=== PATIENT | male | born 1985 | race Caucasian/White ===

== ENCOUNTER 2024-12-06 10:00 | Emergency (ER) | payer OTHER, SELFPAY ==
--- NOTE | ~2024-12-06 | XR_ITS ---
EXAMINATION: XR chest 2V DATE: 12/06/2024 11:02 INDICATION: Cough and fever TECHNIQUE: PA and lateral views of the chest were obtained. COMPARISON: None FINDINGS: The lungs are clear with no focal airspace opacities, pulmonary edema, pleural effusion or pneumothor ax. The cardiomediastinal silhouette is normal. Visualized bones and soft tissues are unremarkable. IMPRESSION: 1. No acute cardiopulmonary disease. Reviewed, dictated and finalized at location A. KSMITH HAMMER OPERATOR
--- NOTE | 2024-12-06 10:04 | ED.URI ---
HPI - URI/Sore Throat General Chief Complaint: Upper Respiratory Infection Stated Complaint: Fatigue/Cough/Fever Time Seen by Provider: 12/06/24 10:04 Source: patient Mode of arrival: ambulatory Limitations: no limitations History of Present Illness HPI Narrative: Patient is a 39-year-old male who presents with fatigue, cold sweats, fever, cough for the last 10 hours. Has not taken anything for symptoms. Denies any known exposures. Smokes half pack a day. Has history of asthma. Related Data Home Medications ?Medication ?Instructions ?Recorded ?Confirmed ?Last Taken ?Type omeprazole 40 mg capsule,delayed mg 12/06/24 Unknown History release Allergies Allergy/AdvReac Type Severity Reaction Status Date / Time No Known Allergies Allergy Unverified 12/06/24 10:17 Review of Systems Review of Systems: All systems reviewed & are unremarkable except as noted in HPI and below Constitutional: Constitutional: Reports chills, Reports fatigue, Reports fever(s), Denies headache(s), Denies malaise and Denies weakness Eyes: Eyes: Denies blurry vision, Denies itchy eyes and Denies loss of vision ENT: Denies otalgia, Denies headache(s), Denies nasal congestion, Denies sinus pain and Denies sore throat Cardiovascular: Cardiovascular: Denies chest pain, Denies irregular heart rhythm and Denies dyspnea Respiratory: Respiratory: Reports cough and Denies dyspnea Gastrointestinal: Gastrointestinal: Denies abdominal pain, Denies diarrhea, Denies nausea and Denies vomiting Musculoskeletal: Musculoskeletal: Denies back pain, Denies myalgias and Denies arthralgias Integumentary/Breasts: Skin/Breast: Denies pruritus and Denies rash Neurologic: Denies headache(s), Denies loss of vision and Denies weakness Psychiatric: Psychiatric: Reports no additional psychiatric complaints Endocrine: Endocrine: Denies fatigue Allergic/Immunologic: Allergic/Immunologic: Denies itchy eyes PMFSH Comments At time of signature, agree with nursing past medical, surgical, social and family history. There is no relevant family history pertinent to the presenting complaint. Exam Const: General: cooperative, healthy appearing, comfortable, no acute distress and well nourished Nutritional Appearance: well nourished Orientation/consciousness: patient oriented x3 Limitations: no limitations HENMT: Head: normal to inspection, normocephalic and atraumatic Ears: hearing grossly normal bilaterally, external ears normal, TM's normal bilaterally, EAC's normal and no periauricular adenopathy Face/Nose/Sinus: Normal external nose present, Abnormal mucous membranes and turbinates present erythematous bilateral and diffuse, normal facial exam, sinuses nontender and face symmetric Face and sinus: normal facial exam, sinuses nontender and face symmetric Mouth: Yes Normal oral and palatal mucosa present, Yes lip normal, Yes tongue normal, Yes Normal salivary glands and ducts present, Yes oropharynx normal and Yes moist mucous membranes Teeth and gingiva: dentition normal Throat: posterior oropharynx normal, tonsils normal and uvula midline Eyes: General: appearance normal, both eyes and all related structures Alignment and Position: alignment normal and position normal Periorbital: periorbital findings normal Eyelids: eyelids normal Pupils: Equal, round and reactive pupils present Neck: Neck: normal visual inspection, full ROM, no lymphadenopathy and supple Chest: Chest palpation & inspection: normal inspection of the chest and normal palpation of entire chest wall Resp: Effort & Inspection: normal respiratory effort and able to speak in complete sentences Auscultation: no crackles, no rales, rhonchi throughout and no wheezes Cardio: Rate: tachycardic Rhythm: regular rhythm Heart sounds: S1 normal heart sound present and S2 normal heart sound present GI: Inspection: normal to inspection Skin: General skin exam: normal color and no rashes or lesions noted Neuro: General: patient oriented x3 and moves all extremities Cranial nerves: Yes Equal, round and reactive pupils present Speech: normal speech Gait exam (Neuro): Normal gait present Extrem: General: normal to inspection, full ROM and no edema Psych: Appearance: grossly normal and well kempt Mental Status: mental status grossly normal Speech and movement: Normal speech and movement present Affect: normal affect Attitude: cooperative Thought process: Normal thought process present Course Course Emergency Course: Discharge instructions reviewed with patient, as well as provided in writing per nursing staff. The instructions also include specific and strict return/GO TO THE ER as well as f/u information. All questions have been answered, and the patient deny any further questions with discharge and discharge plan. Portions of this record may have been created with voice recognition software Level of Care: Express Care Visit Vital Signs Vital signs: Vital Signs Temperature 38.3 C H 12/06/24 10:07 Pulse Rate 108 H 12/06/24 10:07 Respiratory Rate 18 02/21/25 10:07 Blood Pressure 137/86 12/06/24 10:07 Pulse Oximetry 96 12/06/24 10:07 Oxygen Delivery Room Air 12/06/24 10:07 Temperature 38.3 C H 12/06/24 10:07 Pulse Rate 108 H 12/06/24 10:07 Respiratory Rate 18 12/06/24 10:07 Blood Pressure 137/86 12/06/24 10:07 Pulse Oximetry 96 12/06/24 10:07 Oxygen Delivery Room Air 12/06/24 10:07 Reviewed MDM - URI/Sore Throat MDM Narrative Medical decision making narrative: Pt well hydrated appearing, in no respiratory distress, hemodynamically stable. Recommend supportive care. The patient is stable at time of discharge the clinical impression was discussed and the patient was given the opportunity to ask questions, which were addressed as completely as possible given the information available at present. Anticipatory guidance and return to care precautions were discussed and the importance of primary care follow-up was stressed and encouraged. The patient voiced understanding of the plan, indications to return, and the need for follow-up. Differential diagnosis considered: Bronchitis, Sifuentes virus, strep pharyngitis, allergic rhinitis, upper respiratory tract infection, sinusitis, rhinosinusitis, nasopharyngitis. viral pharyngitis, otitis media, otitis externa, otitis effusion, foreign body, cerumen impaction, viral syndrome, and influenza.? Exam findings show no acute concerns or changes; patient is non-toxic appearing and is in no distress.? Patient is appropriate for outpatient treatment and follow-up.? Medical Records Attestation: I reviewed the patient's medical records. Lab Data Attestation: I reviewed the patient's lab results. Labs: Lab Results 12/06/24 Range/Units 10:30 POC Influenza A Ag Negative (Negative) POC Influenza B Ag Negative (Negative) POC SARS CoV-2 Ag Negative (Negative) Imaging Data Radiologist's impression: EXAMINATION: XR chest 2V DATE: 12/06/2024 11:02 INDICATION: Cough and fever TECHNIQUE: PA and lateral views of the chest were obtained. COMPARISON: None FINDINGS: The lungs are clear with no focal airspace opacities, pulmonary edema, pleural effusion or pneumothorax. The cardiomediastinal silhouette is normal. Visualized bones and soft tissues are unremarkable. IMPRESSION: 1. No acute cardiopulmonary disease. Discharge Plan Discharge Clinical Impression: Influenza-like illness Patient Disposition: Home, Self-Care Condition: Stable Instructions: Viral Syndrome (ED) Additional Instructions: Were positive negative for COVID and Flu. It may be too early in the disease process for it to be positive. However, treatment remains the same in treating symptoms. Your symptoms are due to a viral illness, which is not treated with antibiotics. Viral symptoms can be present for up to a few weeks. -For fever/pain, you may take: Tylenol 650-1000mg by mouth every 4-6 hours. Do not exceed 4000mg in 24 hours. Advil (Ibuprofen) 600 mg by mouth every 6 hours. Do not exceed 2400mg in 24 hours. 8 AM: Tylenol 11 AM: Ibuprofen 2 PM: Tylenol 5 PM: Ibuprofen 8 PM: Tylenol 11 PM: Ibuprofen 2 AM: Tylenol 5 AM: Ibuprofen -Antihistamine medication such as Benadryl/Zyrtec at night and Claritin/Larisa during the day can help improve symptoms. -Use Flonase twice a day for 5 days then daily to help reduce the inflammation and dry up your sinuses. -You can also use Sudafed behind the pharmacy counter(12 or 24 hour). Be sure to drink plenty of water with these medications at least 8 ounces with every dose and it is important to drink 8 to 10 glasses of water per day. Water is a natural decongestant -Eat and drink things that are easy to swallow, like tea or soup, or popsicles. -Oral rinses such as: Salt water gargles and/or may use topical anesthetic (eg. Chloraseptic spray) or lozenges to relieve dryness or throat pain). -Frequent hand washing or hand transcript evaluator is one of the best ways to prevent spread of infection. -Using a vaporizer or humidifier at night will also help thin secretions and help with coughing up phlegm. -Follow up with primary care provider in 3-5 days if condition is not improving - For new or worsening symptoms go directly to the nearest ER Patient Language: Occitan Prescriptions: New benzonatate 100 mg capsule 100 mg PO BID PRN (Reason: cough) Qty: 14 0RF albuterol sulfate 90 mcg/actuation HFA aerosol inhaler 2 puff inhalation QID PRN (Reason: shortness of breath or wheezing) Qty: 6.7 0RF (DME) Aerochamber MV Spacer See Rx Instructions .Route Qty: 1 0RF Rx Instructions: As directed No Action omeprazole 40 mg capsule,delayed release(DR/EC) Follow-up/Referrals: Sandra Matamoros RN [Primary Care Provider] - 3 Days Stand Alone Forms: Work/School Release IP Time of Disposition: 11:15
[2024-12-06 10:07] VITALS: BP 137/86; PULSE 108; RESP 18; TEMP 38.3; O2SAT 96
[2024-12-06 10:32] LABS: EDCOVIDSCREEN Negative (Negative); EDINFLUASCREEN Negative (Negative); EDINFLUBSCREEN Negative (Negative)
--- OUTSIDE RECORDS SUMMARY | 2024-12-06 10:39 | XMS_ITS | Clinical Summary ---
Author Organization [facility] Healthcare Address [address] [place] [address] Care Team Providers Care Digital Strategy Specialist Name Role Phone Sandra Matamoros CERAMIC SAW TENDER Primary Care Provider Allergies Active Allergy Reactions Criticality Noted Date Comments Lactose Medications traMADol (ULTRAM) 50 mg tablet Take 1 tablet (50 mg total) by mouth every 6 (six) hours. 20 tablet 8 Active albuterol HFA (PROVENTIL HFA,VENTOLIN HFA,PROAIR HFA) 90 mcg/actuation inhaler Inhale 2 puffs every 4 (four) hours as needed 2 Active budesonide-formoter oL (SYMBICORT) 80-4.5 mcg/actuation inhaler Inhale 2 puffs 2 (two) times a day 2 Active omeprazole (PriLOSEC) 40 mg capsule Take 1 capsule (40 mg total) by mouth daily 2 Active tamsulosin (FLOMAX) 0.4 mg extended release capsule Take 1 capsule (0.4 mg total) by mouth nightly as needed 3 Active solifenacin (VESIcare) 10 mg tablet Take 1 tablet (10 mg total) by mouth daily 3 Active HYDROcodone-acetami nophen (NORCO) 5-325 mg per tabletIndications:P ain Take 1 tablet by mouth every 6 (six) hours as needed for pain 12 tablet 3 Active ondansetron ODT (ZOFRAN-ODT) 8 mg disintegrating tabletIndications:P revention of Post-Operative Nausea and Vomiting Take 1 tablet (8 mg total) by mouth every 8 (eight) hours as needed for nausea or vomiting 12 tablet 1 3 Active Active Problems Problem Noted Date Diagnosed Date Scar of hand 08/18/2023 Scarring, keloid 03/24/2023 Mild persistent asthma without complication 07/17 Atrial fibrillation (CMS/HCC) 08/22/2019 Gastroesophageal reflux disease without esophagi tis 02/19/2019 Dental abscess 05/06/2018 Dentalgia 05/06/2018 Dental caries extending into pulp 05/06/2018 Abscess of hand 08/19/2013 Surgical History Surgery Date Site/Laterality Comments THUMB SURGERY 10/16/2012 - 10/15/2013 Right Medical History Medical History Date Comments Sleep apnea Asthma GERD (gastroesophageal reflux disease) Social History Tobacco Use Types Packs/Day Years Used Date Smoking Tobacco: Every Day Cigarettes Smokeless Tobacco: Never Tobacco Cessation:Ready to Q uit: Not Asked; Counseling Given: Not Answered AUDIT-C Answer Date Recorded Frequency of Alcohol Consumption Not on file 08/30/2023 Q2: How many drinks containi ng alcohol do you have on a typical day when you are drinking? Patient does not drink Frequency of Binge Drinking Not on file 08/16 Personal Safety Answer Date Recorded Have you ever been in or are you currently in a harmful physical or emotional relationship or is someone making you feel afraid or unsafe? Denies 09/12/2023 Sex and Gender Information Value Date Recorded Sex Assigned at Not on file Legal Sex Male 3:02 AM MARKETING SUPPORT ASSISTANT Gender Identity Not on file Sexual Orientation Not on file Obstetrics History Last Filed Vital Signs Vital Sign Reading Time Taken Comments Blood Pressure 124/85 11/21/2023 9:17 AM MARKETING SUPPORT ASSISTANT Pulse 73 11/21/2023 9:17 AM MARKETING SUPPORT ASSISTANT Temperature 36 C (96.8 F) 09/12/2023 10:28 AM MARKETING SUPPORT ASSISTANT Respiratory Rate 18 11/21/2023 9:17 AM MARKETING SUPPORT ASSISTANT Oxygen Saturation 98% 11/21/2023 9:17 AM MARKETING SUPPORT ASSISTANT Inhaled Oxygen Concentration - - Weight 122 kg (269 lb) 11/21/2023 9:17 AM MARKETING SUPPORT ASSISTANT Height 180.3 cm (5' 11 ) 11/21/2023 9:17 AM MARKETING SUPPORT ASSISTANT Body Mass Index 37.52 11/21/2023 9:17 AM MARKETING SUPPORT ASSISTANT Plan of Treatment Health Maintenance Due Date Last Done Comments Depression Screening 1987 Hepatitis C Screening 1987 Varicella Vaccines (1 of 2 - 13+ 2-dose series) 2000 DTaP/Tdap/Td Vaccine (6 - Tdap) 05/24/2003 05/23/2003, 02/05/1993, 07/20/1989, Additional history exists Regular Well Visit/Exam 18-64 2005 Pneumococcal vaccine <65 (2 of 2 - PCV) 09/16/2022 09/16/2021 Covid-19 Vaccine (3 - season) 2024 02/11/2021, 01/14/2021 Influenza Vaccine (#1) 2024 , 08/09/2022, 09/16/2021, Additional history exists Hepatitis B Screening Completed 02/28/1997 , 08/29/1996, 07/30/1996 HPV Vaccines Aged Out No longer eligi ble based on patient's age to complete this topic Insurance [facility] CHOICE [facility] HMO/PPO [place]: [place] [address] Care Teams Digital Strategy Specialist Relationship Specialty Start Date End Date Sandra Matamoros NP [address] [place] [address] PCP - General Nurse Practitioner 05/16/24
--- OUTSIDE RECORDS SUMMARY | 2024-12-06 10:39 | XMS_ITS | Encounter Summary ---
Author Organization [facility] Address [address] [place] [address] Phone Care Team Providers Care Nike Athlete Name Role Phone Gabriel Newell MD Primary Care Provider [phone] Juan Ramon Montes FAMILY AND DIVORCE LEGAL ASSISTANT, BUGGY RUNNER Unavailable [phone] Reason for Visit * Reason Comments Medication Refill prilosec Encounter Details Date Type Department Care Team (Late st Contact Info) Description 07/30/2020 Refill [facility] - Family Medicine [facility] [address] [place] [address] Gabriel Newell MD [address] [place] [address] Medication Refill (prilosec) Social History Tobacco Use Types Packs/Day Years Used Date Smoking Tobacco: Every Day Cigarettes Smokeless Tobacco: Never Alcohol Use Standard Drinks/Week Comments Yes 0 (1 standard drink = 0.6 oz pur e alcohol) rarely PHQ-2 Answer Date Recorded PHQ-2 Score 0 06/14/2019 Sexually Active Control Partners Comments Yes Condom Female Sex and Gender Information Value Date Recorded Sex Assigned at Not on file Legal Sex Male 9:49 PM CDT Gender Identity Not on file Sexual Orientation Not on file documented as of this encounter Miscellaneous Notes * Telephone Encounter - Candy Fernandez RN - 07/30/2020 12:04 PM CDT Last Refill 06/04/2019 #90 3 refills Last OV 03/23/2020 f/u 4 months, had an appointment on 06/26/2020 for shoulder pain Next OV Visit date not found Pended for your approval. Requested Prescriptions Pending Prescriptions Disp Refills ??? omeprazole (PriLOSEC) 40 MG CAPSULE DELAYED RELEASE [Pharmacy Med Name: Omeprazole 40 MG Oral Capsule Delayed Release] 90 Cap 0 Sig: Take 1 capsule by mouth once daily documented in this encounter Plan of Treatment Not on file documented as of this encounter Visit Diagnoses Not on filedocumented in this encounter Additional Health Concerns Infection Onset Date Last Indicated Resolved Time COVID - 19 11/18/2020 11/18/2020 11/19/2020 7:59 AM PSYCHIATRIC TECHNICIAN COVID - 19 09/13/2021 09/13/2021 10/03/2021 12:1 6 AM PSYCHIATRIC TECHNICIAN COVID - 19 04/07/2022 04/07/2022 04/17/2022 12:1 6 AM CDT COVID - 19 07/01/2022 07/01/2022 07/11/2022 12:1 6 AM CDT COVID - 19 07/20/2022 07/20/2022 07/30/2022 12:1 6 AM CDT COVID - 19 09/16/2022 09/16/2022 09/26/2022 12:1 6 AM PSYCHIATRIC TECHNICIAN Assessment Noted Time PHQ-9 Depression Total Score: 0 10/23/19 20 10:42 AM PSYCHIATRIC TECHNICIAN documented as of this encounter Care Teams Nike Athlete Relationship Specialty Start Date End Date Gabriel Newell MD PCP - General Family Medicine 02/19/19 Juan Ramon Montes, FAMILY AND DIVORCE LEGAL ASSISTANT, BUGGY RUNNER [address] [place] [address] Nurse Practitioner Advanced Practice Nurse 07/18/23 documented as of this encounter
--- OUTSIDE RECORDS SUMMARY | 2024-12-06 10:39 | XMS_ITS | Referral Summary ---
Author Organization [facility] Healthcare Address [address] [place] [address] Care Team Providers Care Corporate Treasury Analyst Name Role Phone Sandra Matamoros FILTER ASSEMBLER Primary Care Provider Allergies Active Allergy Reactions [...] persistent asthma without complication 07/17 Atrial fibrillation ([facility]/HCC) 08/22/2019 Gastroesophageal reflux disease without esophagi tis 02/19/2019 Dental abscess 05/06/2018 Dentalgia 05/06/2018 Dental caries extending into pulp 05/06/2018 Abscess of hand 08/19/2013 Social History Tobacco Use Types Packs/Day Years [...] on file Legal Sex Male 3:02 AM BRIM EDGE TRIMMER Gender Identity Not on file Sexual Orientation Not on file Last Filed Vital Signs Vital Sign Reading Time Taken Comments Blood Pressure 124/85 11/21/2023 9:17 AM BRIM EDGE TRIMMER Pulse 73 11/21/2023 9:17 AM BRIM EDGE TRIMMER Temperature 36 C (96.8 F) 09/12/2023 10:28 AM BRIM EDGE TRIMMER Respiratory Rate 18 11/21/2023 9:17 AM BRIM EDGE TRIMMER Oxygen Saturation 98% 11/21/2023 9:17 AM BRIM EDGE TRIMMER Inhaled Oxygen Concentration - - Weight 122 kg (269 lb) 11/21/2023 9:17 AM BRIM EDGE TRIMMER Height 180.3 cm (5' 11 ) 11/21/2023 9:17 AM BRIM EDGE TRIMMER Body Mass Index 37.52 11/21/2023 9:17 AM BRIM EDGE TRIMMER Plan of Treatment Not on file Insurance [facility] CHOICE PLUS [facility] HMO/PPO Address: [facility] [id number] [place] [id number] Care Teams Corporate Treasury Analyst Relationship Specialty Start Date End Date Sandra Matamoros NP [address] [place] [address] [address] [place] [address] PCP - General Nurse Practitioner 05/16/24
--- OUTSIDE RECORDS SUMMARY | 2024-12-06 10:39 | XMS_ITS | Clinical Summary ---
Author Organization [facility] Address [address] [place] [address] Phone Care Team Providers Care Quality Assurance Clerk Name Role Phone Gabriel Newell MD Primary Care Provider [phone] Juan Ramon Montes APRN, CANCER PROGRAM DIRECTOR Unavailable Allergies Active Allergy Reactions Criticality Noted Date Comments Lactose Intolerance (Gi) Other (see Comments) Low 0 12/30/2021 constipation Medications fluticasone (FLONASE) 50 MCG/ACT SuspensionIndica tions:Viral URI with cough 1-2 Sprays by Nasal route daily. Use in each nostril as directed. 15.8 mL 3 2 Active budesonide-formo terol fumarate (Symbicort) 80-4.5 MCG/ACT AerosolIndicatio ns:Mild persistent asthma without complication take 2 Puffs by inhalation 2 times daily. Rinse mouth after using. 20.7 g 3 3 Active albuterol 108 (90 Base) MCG/ACT Aerosol SolutionIndicati ons:Mild persistent asthma without complication take 2 Puffs by inhalation every 4 hours as needed for Wheezing. 8.5 g 1 3 Active ibuprofen (MOTRIN) 800 MG Tablet Take 1 Tablet by mouth every 8 hours. 90 Tablet 2 3 Active Additional Information Patient not taking.Reported on 06/20/2023 Hydrocortisone, Perianal, (Anusol-HC) 2.5 % Cream Apply 4 times daily. Apply to rectum as directed. 28 g 3 Active polyethylene glycol (MiraLax) 17 GM/SCOOP Powder Take 17 g by mouth 2 times daily as needed for Constipation - 1st line. 17 g = 1 scoop. Dissolve in 4 -8 oz of water or other liquid. 510 g 3 Active naloxone HCl (Narcan) 4 MG/0.1ML Liquid 1 [place] by Nasal route as needed for Opioid Reversal (opioid overdose). administer for symptoms of overdose (severe sleepiness, breathing problems, not responsive). Call 911. May use additional dose to repeat 1 spray intranasally in 2-3 minutes if needed. 2 Each 3 Active tamsulosin (FLOMAX) 0.4 MG Capsule TAKE 1 CAPSULE BY MOUTH ONCE DAILY AT BEDTIME 3 Active tiZANidine (ZANAFLEX) 4 MG Tablet 3 Active naproxen (NAPROSYN) 375 MG Tablet TAKE 1 TABLET BY MOUTH ONCE DAILY NEEDED WITH A MEAL 3 Active solifenacin (VESICARE) 10 MG TabletIndication s:Urinary frequency,Urinar y urgency,Nocturia Take 1 Tablet by mouth daily. 30 Tablet 1 3 Active omeprazole (PriLOSEC) 40 MG CAPSULE DELAYED RELEASEIndicatio ns:Gastroesophag eal reflux disease without esophagitis Take 1 capsule by mouth once daily 90 Capsule 4 Active Active Problems Problem Noted Date Diagnosed Date Scarring, keloid 03/24/2023 Mild persistent asthma without complication 07/17 Atrial fibrillation 08/22/2019 Gastroesophageal reflux disease without esophagi tis 02/19/2019 Resolved Problems Problem Noted Date Diagnosed Date Resolved Date Tylenol overdose, accidental or unintentional, initial encounter 11/18/2020 021 Elevated LFTs 11/18/2020 02/09/2021 Anterior chest wall pain 06/26/2020 Encounter for general adult medical examination with abnormal findings 02/19/201902/09 Penile abscess 02/19/2019 08/22/2019 Immunizations Immunization Administration Dates Next Due Covid-19, Mrna, Lnp-s, PF, 1 00 mcg/0.5 mL Dose (Moderna) 02/11/2021,01/14/2021 DTP Vaccine 02/05/1993, 9,04/29/1988,1987,1987 Hepatitis B Vaccine, Pediatric/adolescent 02/28/1997,08/29/1996,07/30/1996 Hib Vaccine,unspecified Formulation 03/27/1989 Influenza Vaccine, Quadrivalent, PF 07/17,09/16/2021,06/26/2020,2018 MMR Vaccine 02/05/1993,01/06/1989 OPV 02/05/1993, 9,04/29/1988,1987,1987 Pneumococcal Vaccine Adult - 23 Valent 09/16/2021 Family History Medical History Relation Name Comments Other-comment Brother 1 Hiatal Hernia No Known Problems Brother 2 Cancer Father Prostate Prostate Cancer Father Liver Cancer Maternal Grandfather Stroke Maternal Grandmother Asthma Mother Cancer Mother Colon Colon Cancer Mother Stroke Paternal Grandfather Relation Name Status Comments Brother 1 Alive Brother 2 Alive Father Alive Maternal Grandfather Maternal Grandmother Mother Alive Paternal Grandfather Social History Tobacco Use Types Packs/Day Years Used Date Smoking Tobacco: Every Day Cigarettes 1 17.1 Started: 2007 Smokeless Tobacco: Never Tobacco Cessation:Ready to Q uit: Not Asked; Counseling Given: Not Answered Alcohol Use Standard Drinks/Week Comments Yes 0 (1 standard drink = 0.6 oz pure alcohol) quit 2020- used to drink a lot prior PHQ-2 Answer Date Recorded Total Score - Questions 1-9 0 12/15 Education Answer Date Recorded What is the highest level of school you have completed or the highest degree you have received? 12th grade 03/24/2023 Sexually Active Control Partners Comments Yes Condom Female Sex and Gender Information Value Date Recorded Sex Assigned at Not on file Legal Sex Male 9:49 PM CDT Gender Identity Not on file Sexual Orientation Not on file Last Filed Vital Signs Vital Sign Reading Time Taken Comments Blood Pressure 121/82 07/18/2023 9:38 AM CDT Pulse 71 07/18/2023 9:38 AM CDT Temperature 36.4 C (97.5 F) 06/20/2023 9:53 AM CDT Respiratory Rate 18 07/18/2023 9:38 AM CDT Oxygen Saturation 98% 07/18/2023 9:38 AM CDT Inhaled Oxygen Concentration - - Weight 118.8 kg (262 lb) 07/18/2023 9:38 AM CDT Height 180.3 cm (5' 11 ) 07/18/2023 9:38 AM CDT Body Mass Index 36.54 07/18/2023 9:38 AM CDT Plan of Treatment Health Maintenance Due Date Last Done Comments DTaP/Tdap/Td Immunization (6 - Tdap) 1998 02/05/1993, 07/20/1989, 04/29/1988, Additional history exists Pneumococcal Immunization Combined (2 of 2 - PCV) 09/16/2022 09/16/2021 Influenza Immunization (#1) 06/16/202407/17, 09/16/2021, 06/26/2020, Additional history exists Colonoscopy High Risk 08/03/2032 08/03/2022 Colonoscopy 08/03/2032 08/03/2022 Colorectal Cancer Screening 08/03/2032 Respiratory Syncytial Virus (RSV) Immunization (Adult) (1 - 1-dose 75+ series) 2062 Hepatitis B Immunization Completed 997, 08/29/1996, 07/30/1996 Hepatitis C Virus (HCV) Screening Completed 11/18/2020, 11/17/2020 SARS-COV-2 Immunization Discontinued 02/11/2021, 01/14 Meningococcal Immunization (ACWY) Aged Out No longer eligible based on patient's age to complete this topic Rotavirus Immunization Aged Out No lo nger eligible based on patient's age to complete this topic Procedures Procedure Name Priority Date/Time Associated Diagnosis Comments HEPATITIS C RNA QUANT PCR VIRAL LOAD Routine 11/18/2020 6:33 AM PRESS TOOL MAKER from Last 3 Months or Most Recently Relevant to Health Maintenance Results * Hepatitis C RNA Quant PCR Viral Load (11/18/2020 6:33 AM PRESS TOOL MAKER) HCV RNA QUANT PCR NON DETECTED NON DETECTED 11/20/2020 1:00 PM PRESS TOOL MAKER [facility] HCV RNA QT LOG10 11/20/2020 1:00 PM PRESS TOOL MAKER [facility] Comment: LOG 10 is not applicable. Sample held in Serology for 1 month. Call Laboratory if further testing is desired. This test was performed using ASHWIN AmpliPrep ASHWIN Taq Man Real Time PCR. Blood BLOOD SPECIMEN / Unknown Venipuncture / Unknown 11/18/2020 6:33 AM PRESS TOOL MAKER 11/18/2020 6:43 AM PRESS TOOL MAKER us Jaxson Glynn DO IMMUNOLOGY ORDERABLES Final Res ult [facility] [address] [place] [address], [place] from Last 3 Months or Most Recently Relevant to Health Maintenance Insurance MEDICAID [place] Advance Directives * Full Code (Latest Code Status on File) Date Activated Date Inactivated Comments 11/18/2020 12:40 AM 11/19/2020 3:46 PM CPR-Full Becky tment: FULL ARREST: Attempt Resuscitation/CPR wit intubation and mechanical ventilation. PRE-ARREST: Use entire range of life support measures to stabilize the patient. Care Teams Quality Assurance Clerk Relationship Specialty Start Date End Date Gabriel Newell MD PCP - General Family Medicine 02/19/19 Juan Ramon Montes, FORMULATOR, CANCER PROGRAM DIRECTOR [address] [place] [address] Nurse Practitioner Advanced Practice Nurse 07/18/23
--- OUTSIDE RECORDS SUMMARY | 2024-12-06 10:39 | XMS_ITS | Encounter Summary ---
Author Organization [facility] Address [address] [place] [address] Phone Care Team Providers Care Retirement Benefits Specialist Name Role Phone Gabriel Newell MD Primary Care Provider Juan Ramon Montes APRN, CELL TENDER Unavailable [phone] Reason for Visit * Reason Comments Medication Refill Encounter Details Date Type Department Care Team (Late st Contact Info) Description 10/01/2020 Refill [facility] - Family Medicine [facility] [address] [place] [id number] Gabriel Newell MD [address] [place] [address] Medication Refill Social History Tobacco Use Types Packs/Day Years [...] on file Sexual Orientation Not on file COVID-19 Exposure Response Date Recorded In the last month, have you been in contact with someone who was confirmed or suspected to have Coronavirus / COVID-19? No / Unsure 09/17/2020 9:25 AM CLIENT SALES AND SERVICE OFFICER documented as of this encounter Miscellaneous Notes * Telephone Encounter - Carole Callowayviviana Marquez RN - 10/01/2020 11:17 AM CST Medication failed the protocol, provider to review and approve the medication order if appropriate. Requested Prescriptions Pending Prescriptions Disp Refills warfarin (COUMADIN) 1 MG Tablet [Pharmacy Med Name: Warfarin Sodium 1 MG Oral Tablet] 90 Tab 0 Sig: TAKE 1 TABLET BY MOUTH ONCE DAILY WITH 5 MG TABLET TO EQUAL 6 MG DAILY Hematology: Anticoagulants - Warfarin Failed - 10/01/2020 9:13 AM Failed - INR in normal range and within 90 days INR Date Value Ref Range Status 09/17/2020 2.6 (H) 0.9 - 1.2 Final Comment: Therapeutic Ranges INR = 2.0-3.0: Venous thromb, atrial fib, pul embolism, tissue heart valve, ami. INR = 2.5-3.5: Mechanical heart valve Critical value for INR is >/= 4.5 Passed - Valid encounter within last 12 months Past Office Visits Recent Outpatient Visits 1 month ago Paroxysmal atrial fibrillation (HCC) [facility] Gabriel Jones MD 3 months ago Acute pain of right shoulder [facility] Gabriel Jones MD 6 months ago Atrial fibrillation, unspecified type (HCC) [facility] Gabriel Jones MD 9 months ago Acute maxillary sinusitis, recurrence not specified [facility] Gabriel Jones MD 10 months ago Cellulitis and abscess of right leg [facility] Gabriel Jones MD Upcoming Appointments Future Appointments In 2 weeks Lab, [facility], [facility] In 4 months Gabriel Newell MD [facility] [employer] [place] EXERCISE EQUIPMENT REPAIR TECHNICIAN - Recent and Past Visits Recent Visits Date Type Provider Dept 08/07/20 Office Visit Gabriel Newell MD [facility] 06/26/20 Office Visit Gabriel Newell MD [facility] 03/23/20 Office Visit Gabriel Newell MD [facility] 12/24/19 [facility] Visit Gabriel [facility]ell MD [facility] 11/22/19 Office Visit Gabriel Newell MD [facility] 10/23/19 Office Visit Sindy Rea, SHELLY [facility] 09/17/19 Office Visit Gabriel Newell MD [facility] 08/22/19 [facility] Visit [facility] Showing recent visits within past 460 days with a meds authorizing provider and meeting all other requirements Future Appointments No visits were found meeting these conditions. Showing future appointments within next 90 days with a meds authorizing provider and meeting all other requirements warfarin (COUMADIN) 5 MG Tablet [Pharmacy Med Name: Warfarin Sodium 5 MG Oral Tablet] 90 Tab 0 Sig: Take 1 tablet by mouth once daily Hematology: Anticoagulants - Warfarin Failed - 10/01/2020 9:13 AM Failed - INR in normal range and within 90 days INR Date Value Ref Range Status 09/17/2020 2.6 (H) 0.9 - 1.2 Final Comment: Therapeutic Ranges INR = 2.0-3.0: Venous thromb, atrial fib, pul embolism, tissue heart valve, ami. INR = 2.5-3.5: Mechanical heart valve Critical value for INR is >/= 4.5 Passed - Valid encounter within last 12 months Past Office Visits Recent Outpatient Visits 1 month ago Paroxysmal atrial fibrillation (HCC) [facility] Gabriel Jones MD 3 months ago Acute pain of right shoulder [facility] Gabriel Jones MD 6 months ago Atrial fibrillation, unspecified type (HCC) [facility] Gabriel Jones MD 9 months ago Acute maxillary sinusitis, recurrence not specified [facility] Gabriel Jones MD 10 months ago Cellulitis and abscess of right leg [facility] Gabriel Jones MD Upcoming Appointments Future Appointments In 2 weeks [facility], [facility], [facility] In 4 months Gabriel Newell MD [facility], [facility] EXERCISE EQUIPMENT REPAIR TECHNICIAN - Recent and Past Visits Recent Visits Date Type Provider Dept 08/07/20 Office Visit Gabriel Newell MD [facility] 06/26/20 Office Visit Gabriel Newell, MD [facility] 03/23/20 Office Visit Gabriel Newell, [facility] 12/24/19 Office Visit Gabriel Newell, [facility] 12/03/19 Office Visit Gabriel Newell, [facility] 11/22/19 Office Visit Gabriel Newell MD [facility] 10/23/19 Office Visit Sindy Rea, SHELLY [facility] 09/17/19 Office Visit Gabriel Nweell, MD [facility] 08/22/19 Office Visit Gabriel Newell, [facility] Showing recent visits within past 460 days with a meds authorizing provider and meeting all other requirements Future Appointments No visits were found meeting these conditions. Showing future appointments within next 90 days with a meds authorizing provider and meeting all other requirements NT SALES AND SERVICE OFFICER documented in this encounter Plan of Treatment Not on file documented as of this encounter Visit Diagnoses Diagnosis Atrial fibrillation, unspecified type (HCC) documented in this encounter Additional Health Concerns Infection Onset Date Last Indicated Resolved Time COVID - 19 11/18/2020 11/18/2020 11/19/2020 7:59 AM CLIENT SALES AND SERVICE OFFICER COVID - 19 09/13/2021 09/13/2021 10/03/2021 12:1 6 AM CLIENT SALES AND SERVICE OFFICER COVID - 19 04/07/2022 04/07/2022 04/17/2022 12:1 6 AM CDT COVID - 19 07/01/2022 07/01/2022 07/11/2022 12:1 6 AM CDT COVID - 19 07/20/2022 07/20/2022 07/30/2022 12:1 6 AM CDT COVID - 19 09/16/2022 09/16/2022 09/26/2022 12:1 6 AM CLIENT SALES AND SERVICE OFFICER Assessment Noted Time PHQ-9 Depression Total Score: 0 10/23/19 20 10:42 AM CLIENT SALES AND SERVICE OFFICER documented as of this encounter Care Teams Retirement Benefits Specialist Relationship Specialty Start Date End Date Gabriel Newell MD PCP - General Family Medicine 02/19/19 Juan Ramon Montes, CASH CHECKER, CELL TENDER [address] [place] [address] Nurse Practitioner Advanced Practice Nurse 07/18/23 documented as of this encounter
== END 2024-12-06 11:20 | disposition home or self-care (01) ==
PROVIDERS: Emergency Provider Nurse Practitioner Family
DX: R53.83 Other fatigue (principal); R05.9 Cough, unspecified; R50.9 Fever, unspecified; F17.210 Nicotine dependence, cigarettes, uncomplicated; Z20.822 Contact with and (suspected) exposure to COVID-19
CPT/HCPCS: 71046; 87426; 87804; 99203; G0463